=== PATIENT | male | born 1970 | race African-American/Black ===

== ENCOUNTER 2021-01-09 12:46 | Inpatient (IN) | payer OTHER ==
[2021-01-09] MEDS ORDERED: IBUPROFEN 400 MG TABLET (FP) PO PRN (15:07)
[2021-01-09] MEDS ORDERED: MENTHOL/PHENOL 1 EACH UD MM PRN (15:07)
[2021-01-09] MEDS ORDERED: NICOTINE 10 MG CARTRIDGE (INHALER) IH PRN (15:07)
[2021-01-09] MEDS ORDERED: MAGNESIUM HYDROX 2400MG/30ML ORAL SUSPENSION 30 ML CUP PO PRN (15:07)
[2021-01-09] MEDS ORDERED: METHOCARBAMOL 500 MG TABLET PO PRN (15:07)
[2021-01-09] MEDS ORDERED: ACETAMINOPHEN 325 MG TABLET (FP) PO PRN ×2 (15:07)
[2021-01-09] MEDS ORDERED: MAGNESIUM CITRATE 300 ML BOTTLE PO PRN (15:07)
[2021-01-09] MEDS ORDERED: MAG HYDROX/AL HYDROX/SIMETH 30 ML UNIT-DOSE CUP PO PRN (15:07)
[2021-01-09] MEDS ORDERED: BISMUTH SUBSALICYLATE 524 MG/30 ML PO PRN (15:07)
[2021-01-09] MEDS ORDERED: ONDANSETRON *ODT* 4 MG TABLET SL PRN (15:07)
[2021-01-09 17:02] VITALS: BMI 21.2
[2021-01-09] MEDS: hydrOXYzine PAMOATE 25 MG CAPSULE (FP) PO SCH ×2 (18:50→22:16)
[2021-01-09] MEDS ORDERED: TUBERCULIN PPD 5 TU/0.1ML SYRINGE (IN PATIENT USE ONLY) ID ONE (19:00)
[2021-01-09] MEDS ORDERED: THIAMINE HCL 100 MG TABLET (FP) PO SCH (22:00)
[2021-01-09] MEDS ORDERED: MELATONIN 5 MG TABLETS PO SCH (22:00)
[2021-01-09] MEDS: NAPROXEN 500 MG TABLET PO SCH (22:15)
[2021-01-09] MEDS: AMOX TR/POT CLAV 875MG/125MG TABLETS (FP) PO SCH (22:15)
[2021-01-10] MEDS: hydrOXYzine PAMOATE 25 MG CAPSULE (FP) PO SCH ×3 (06:04→10:29)
[2021-01-10] MEDS ORDERED: AMOX TR/POT CLAV 875MG/125MG TABLETS (FP) PO SCH (08:00)
[2021-01-10] MEDS: AMOX TR/POT CLAV 875MG/125MG TABLETS (FP) PO SCH (08:27)
[2021-01-10 09:12] VITALS: BP 128/75; PULSE 85; TEMP 98.6
[2021-01-10] MEDS ORDERED: PRENATAL VITAMINS W/ FOLIC ACID TABLET (FP) PO SCH (10:00)
[2021-01-10] MEDS: NAPROXEN 500 MG TABLET PO SCH (10:30)
[2021-01-10 10:34] LABS: ALBUMIN 2.7 g/dl (3.4-5.0); BLOOD UREA NITROGEN 15.1 mg/dL (7-18); CALCIUM 8.4 mg/dL (8.5-10.1)
[2021-01-10 10:38] LABS: CREATININE 0.8 mg/dL (0.55-1.3)
[2021-01-10 10:40] LABS: BILIRUBIN,TOTAL 0.3 mg/dL (0.2-1); TOT PROT 6.5 g/dl (6.4-8.2)
[2021-01-10 10:46] LABS: HEMATOCRIT 39.1 % (35.4-49); HEMOGLOBIN 13.6 GM/dL (11.7-16.9); MCH 32.6 pg (25.7-33.7); MCHC 34.7 g/dl (32.0-35.9); MEAN CELL VOLUME 94.1 fl (80-96); MEAN PLT VOLUME 9.1 fl (7.5-11.1); PLATELET COUNT 242 10^3/uL (134-434); RBC 4.16 M/mm3 (4.00-5.60); RDW 13.9 % (11.9-15.9); WHITE BLOOD COUNT 5.8 K/mm3 (4.0-10.0)
== END 2021-01-10 13:18 | disposition home or self-care (01) | DRG 774 ==
LOC: YASAS 12:46 → Y6N 17:55
PROVIDERS: ADMIT Allergy & Immunology; ATTEND Allergy & Immunology
PROC: HZ2ZZZZ Detoxification Services for Substance Abuse Treatment (ICD-10-PCS; principal; 2021-01-09)
DX: F10.230 Alcohol dependence with withdrawal, uncomplicated (principal); F14.20 Cocaine dependence, uncomplicated; F17.210 Nicotine dependence, cigarettes, uncomplicated; L03.114 Cellulitis of left upper limb; M19.90 Unspecified osteoarthritis, unspecified site; Z59.01 Sheltered homelessness
CPT/HCPCS: 36415; 80053; 85027; 86780; C9803; U0003; U0005

== ENCOUNTER 2021-01-10 13:27 | Inpatient (IN) | payer OTHER ==
[~2021-01-10 13:27] MED LIST: ACETAMINOPHEN 325 MG TABLET (FP) PO PRN; IBUPROFEN 400 MG TABLET (FP) PO PRN; LOPERAMIDE HCL 2 MG CAPSULE PO PRN; MAG HYDROX/AL HYDROX/SIMETH 30 ML UNIT-DOSE CUP PO PRN; MAGNESIUM CITRATE 300 ML BOTTLE PO PRN; MAGNESIUM HYDROX 2400MG/30ML ORAL SUSPENSION 30 ML CUP PO PRN; NICOTINE 10 MG CARTRIDGE (INHALER) IH PRN; P-EPHED 60MG/TRIPROLIDI 2.5MG TABLET PO PRN; guaiFENesin 200 MG/10 ML 10 ML UNIT-DOSE CUPS PO PRN; hydrOXYzine PAMOATE 25 MG CAPSULE (FP) PO PRN
[2021-01-10] MEDS ORDERED: PT OWN MED DRAWER 7, Y5N ONE (18:12)
[2021-01-10] MEDS: AMOX TR/POT CLAV 875MG/125MG TABLETS (FP) PO SCH (18:59)
[2021-01-10] MEDS: THIAMINE HCL 100 MG TABLET (FP) PO SCH (22:44)
[2021-01-10] MEDS: NAPROXEN 500 MG TABLET PO SCH (22:44)
[2021-01-10] MEDS: MELATONIN 5 MG TABLETS PO SCH (22:44)
[2021-01-10] MEDS: BACITRACIN 0.9 GM PACKET TP SCH (22:45)
[2021-01-11] MEDS ORDERED: PT OWN MED DRAWER 7, Y5N ONE (03:35)
[2021-01-11] MEDS: AMOX TR/POT CLAV 875MG/125MG TABLETS (FP) PO SCH ×2 (07:43→17:42)
[2021-01-11] MEDS: NICOTINE 7 MG/24 HOURS TOPICAL PATCH TD SCH (10:31)
[2021-01-11] MEDS: NAPROXEN 500 MG TABLET PO SCH ×2 (10:31→23:15)
[2021-01-11] MEDS: LIDOCAINE 5% TOPICAL PATCH TP SCH (10:31)
[2021-01-11] MEDS: PRENATAL VITAMINS W/ FOLIC ACID TABLET (FP) PO SCH (10:31)
[2021-01-11] MEDS: BACITRACIN 0.9 GM PACKET TP SCH ×2 (10:31→23:17)
[2021-01-11] MEDS: MELATONIN 5 MG TABLETS PO SCH (23:15)
[2021-01-11] MEDS: THIAMINE HCL 100 MG TABLET (FP) PO SCH (23:15)
[2021-01-11] MEDS: LIDOCAINE PATCH REMOVAL MC SCH (23:16)
[2021-01-12] MEDS ORDERED: PT OWN MED DRAWER 7, Y5N ONE ×4 (03:37→20:30)
[2021-01-12 06:49] VITALS: TEMP 97.1
[2021-01-12] MEDS: AMOX TR/POT CLAV 875MG/125MG TABLETS (FP) PO SCH ×2 (07:51→18:04)
[2021-01-12] MEDS: PRENATAL VITAMINS W/ FOLIC ACID TABLET (FP) PO SCH (09:53)
[2021-01-12] MEDS: NICOTINE 7 MG/24 HOURS TOPICAL PATCH TD SCH (09:53)
[2021-01-12] MEDS: LIDOCAINE 5% TOPICAL PATCH TP SCH (09:53)
[2021-01-12] MEDS: BACITRACIN 0.9 GM PACKET TP SCH ×2 (09:54→21:20)
[2021-01-12] MEDS: NAPROXEN 500 MG TABLET PO SCH ×2 (09:54→21:22)
[2021-01-12] MEDS: MELATONIN 5 MG TABLETS PO SCH (21:21)
[2021-01-12] MEDS: LIDOCAINE PATCH REMOVAL MC SCH (21:21)
[2021-01-12] MEDS: THIAMINE HCL 100 MG TABLET (FP) PO SCH (21:22)
[2021-01-13] MEDS: AMOX TR/POT CLAV 875MG/125MG TABLETS (FP) PO SCH ×3 (07:16→17:44)
[2021-01-13] MEDS ORDERED: PT OWN MED DRAWER 7, Y5N ONE ×3 (09:05→19:39)
[2021-01-13] MEDS: BACITRACIN 0.9 GM PACKET TP SCH ×2 (10:13→22:47)
[2021-01-13] MEDS: NAPROXEN 500 MG TABLET PO SCH ×2 (10:13→22:47)
[2021-01-13] MEDS: LIDOCAINE 5% TOPICAL PATCH TP SCH (10:13)
[2021-01-13] MEDS: PRENATAL VITAMINS W/ FOLIC ACID TABLET (FP) PO SCH (10:13)
[2021-01-13] MEDS: NICOTINE 7 MG/24 HOURS TOPICAL PATCH TD SCH (10:14)
[2021-01-13 12:11] VITALS: BP 119/75; PULSE 87
[2021-01-13] MEDS: LIDOCAINE PATCH REMOVAL MC SCH (22:47)
[2021-01-13] MEDS: THIAMINE HCL 100 MG TABLET (FP) PO SCH (22:47)
[2021-01-13] MEDS: MELATONIN 5 MG TABLETS PO SCH (22:47)
[2021-01-14] MEDS ORDERED: PT OWN MED DRAWER 7, Y5N ONE (06:48)
[2021-01-14] MEDS: AMOX TR/POT CLAV 875MG/125MG TABLETS (FP) PO SCH (07:30)
[2021-01-14] MEDS: NICOTINE 7 MG/24 HOURS TOPICAL PATCH TD SCH (11:01)
[2021-01-14] MEDS: BACITRACIN 0.9 GM PACKET TP SCH (11:01)
[2021-01-14] MEDS: NAPROXEN 500 MG TABLET PO SCH (11:01)
[2021-01-14] MEDS: LIDOCAINE 5% TOPICAL PATCH TP SCH (11:01)
[2021-01-14] MEDS: PRENATAL VITAMINS W/ FOLIC ACID TABLET (FP) PO SCH (11:02)
== END 2021-01-14 10:33 | disposition home or self-care (01) | DRG 772 ==
LOC: YASAS 13:27 → Y3E 13:29
PROVIDERS: ADMIT Allergy & Immunology; ATTEND Allergy & Immunology
PROC: HZ42ZZZ Group Counseling for Substance Abuse Treatment, Cognitive-Behavioral (ICD-10-PCS; principal; 2021-01-10)
DX: F10.20 Alcohol dependence, uncomplicated (principal); F14.20 Cocaine dependence, uncomplicated; F17.210 Nicotine dependence, cigarettes, uncomplicated; Z59.01 Sheltered homelessness

== ENCOUNTER 2021-02-05 15:20 | Inpatient (IN) | payer OTHER ==
[2021-02-05] MEDS ORDERED: NICOTINE 10 MG CARTRIDGE (INHALER) IH PRN (16:30)
[2021-02-05] MEDS ORDERED: MENTHOL/PHENOL 1 EACH UD MM PRN (16:30)
[2021-02-05] MEDS ORDERED: BISMUTH SUBSALICYLATE 524 MG/30 ML PO PRN (16:30)
[2021-02-05] MEDS ORDERED: MAG HYDROX/AL HYDROX/SIMETH 30 ML UNIT-DOSE CUP PO PRN (16:30)
[2021-02-05] MEDS ORDERED: IBUPROFEN 400 MG TABLET (FP) PO PRN (16:30)
[2021-02-05] MEDS ORDERED: ONDANSETRON *ODT* 4 MG TABLET SL PRN (16:30)
[2021-02-05] MEDS ORDERED: MAGNESIUM CITRATE 300 ML BOTTLE PO PRN (16:30)
[2021-02-05] MEDS ORDERED: METHOCARBAMOL 500 MG TABLET PO PRN (16:30)
[2021-02-05] MEDS ORDERED: ACETAMINOPHEN 325 MG TABLET (FP) PO PRN ×2 (16:30)
[2021-02-05] MEDS ORDERED: MAGNESIUM HYDROX 2400MG/30ML ORAL SUSPENSION 30 ML CUP PO PRN (16:30)
[2021-02-05 19:50] VITALS: BMI 21.7
[2021-02-05] MEDS: PRENATAL VITAMINS W/ FOLIC ACID TABLET (FP) PO SCH (20:35)
[2021-02-05] MEDS: hydrOXYzine PAMOATE 25 MG CAPSULE (FP) PO SCH ×2 (20:35→22:38)
[2021-02-05] MEDS ORDERED: MELATONIN 5 MG TABLETS PO SCH (22:00)
[2021-02-05] MEDS ORDERED: THIAMINE HCL 100 MG TABLET (FP) PO SCH (22:00)
[2021-02-05] MEDS: NAPROXEN 500 MG TABLET PO PRN (22:37)
[2021-02-05] MEDS: TOLNAFTATE 1% CREAM 15 GM TUBE TP SCH (22:38)
[2021-02-06] MEDS ORDERED: NYSTATIN 100,000 UNIT/GM TOPICAL CREAM 15 GM TUBE TP SCH
[2021-02-06] MEDS: hydrOXYzine PAMOATE 25 MG CAPSULE (FP) PO SCH ×2 (05:22→10:26)
[2021-02-06] MEDS ORDERED: BACITRACIN 0.9 GM PACKET TP SCH (10:00)
[2021-02-06] MEDS: PRENATAL VITAMINS W/ FOLIC ACID TABLET (FP) PO SCH (10:26)
[2021-02-06] MEDS: TOLNAFTATE 1% CREAM 15 GM TUBE TP SCH (10:26)
[2021-02-06] MEDS: NAPROXEN 500 MG TABLET PO PRN (10:28)
[2021-02-06 12:14] LABS: HEMATOCRIT 41.2 % (35.4-49); HEMOGLOBIN 14.1 GM/dL (11.7-16.9); MCH 32.3 pg (25.7-33.7); MCHC 34.1 g/dl (32.0-35.9); MEAN CELL VOLUME 94.7 fl (80-96); MEAN PLT VOLUME 9.4 fl (7.5-11.1); PLATELET COUNT 211 10^3/uL (134-434); RBC 4.35 M/mm3 (4.00-5.60); RDW 13.7 % (11.9-15.9); WHITE BLOOD COUNT 5.6 K/mm3 (4.0-10.0)
[2021-02-06 12:33] LABS: CALCIUM 8.4 mg/dL (8.5-10.1)
[2021-02-06 12:34] LABS: ALBUMIN 2.9 g/dl (3.4-5.0)
[2021-02-06 12:36] LABS: BLOOD UREA NITROGEN 14.3 mg/dL (7-18); CREATININE 0.8 mg/dL (0.55-1.3)
[2021-02-06 12:37] LABS: BILIRUBIN,TOTAL 0.6 mg/dL (0.2-1); TOT PROT 6.5 g/dl (6.4-8.2)
[2021-02-06 13:04] VITALS: BP 107/51; PULSE 89; TEMP 97.1
== END 2021-02-06 12:36 | disposition home or self-care (01) | DRG 774 ==
LOC: YASAS 15:20 → UNDOADMIN 18:16 → Y3N 18:16
PROVIDERS: ADMIT Allergy & Immunology; ATTEND Allergy & Immunology
PROC: HZ2ZZZZ Detoxification Services for Substance Abuse Treatment (ICD-10-PCS; principal; 2021-02-05)
DX: F10.230 Alcohol dependence with withdrawal, uncomplicated (principal); F14.10 Cocaine abuse, uncomplicated; F17.213 Nicotine dependence, cigarettes, with withdrawal; M19.90 Unspecified osteoarthritis, unspecified site; R26.2 Difficulty in walking, not elsewhere classified; Z99.89 Dependence on other enabling machines and devices
CPT/HCPCS: 36415; 80053; 85027; 86780; C9803; U0003; U0005

== ENCOUNTER 2021-07-10 13:00 | Inpatient (IN) | payer OTHER ==
[2021-07-10] MEDS ORDERED: P-EPHED 60MG/TRIPROLIDI 2.5MG TABLET PO PRN (15:02)
[2021-07-10] MEDS ORDERED: ACETAMINOPHEN 325 MG TABLET (FP) PO PRN (15:02)
[2021-07-10] MEDS ORDERED: NICOTINE 10 MG CARTRIDGE (INHALER) IH PRN (15:02)
[2021-07-10] MEDS ORDERED: IBUPROFEN 400 MG TABLET (FP) PO PRN (15:02)
[2021-07-10] MEDS ORDERED: MAGNESIUM HYDROX 2400MG/30ML ORAL SUSPENSION 30 ML CUP PO PRN (15:02)
[2021-07-10] MEDS ORDERED: MAGNESIUM CITRATE 300 ML BOTTLE PO PRN (15:02)
[2021-07-10] MEDS ORDERED: guaiFENesin 200 MG/10 ML 10 ML UNIT-DOSE CUPS PO PRN (15:02)
[2021-07-10] MEDS ORDERED: MAG HYDROX/AL HYDROX/SIMETH 30 ML UNIT-DOSE CUP PO PRN (15:02)
[2021-07-10] MEDS ORDERED: LOPERAMIDE HCL 2 MG CAPSULE PO PRN (15:02)
[2021-07-10 18:23] VITALS: BMI 21.1
[2021-07-10] MEDS: MELATONIN 5 MG TABLETS PO SCH (23:04)
[2021-07-10] MEDS: THIAMINE HCL 100 MG TABLET (FP) PO SCH (23:05)
[2021-07-10] MEDS: hydrOXYzine PAMOATE 25 MG CAPSULE (FP) PO SCH ×2 (23:05→23:10)
[2021-07-10] MEDS ORDERED: TUBERCULIN PPD 5 TU/0.1ML VIAL ID ONE (23:06)
[2021-07-11] MEDS: hydrOXYzine PAMOATE 25 MG CAPSULE (FP) PO SCH ×5 (07:08→22:17)
[2021-07-11 11:02] LABS: HEMATOCRIT 45.4 % (35.4-49); HEMOGLOBIN 15.2 GM/dL (11.7-16.9); MCH 31.2 pg (25.7-33.7); MCHC 33.6 g/dl (32.0-35.9); MEAN CELL VOLUME 93.1 fl (80-96); MEAN PLT VOLUME 9.8 fl (7.5-11.1); PLATELET COUNT 201 10^3/uL (134-434); RBC 4.88 M/mm3 (4.00-5.60); RDW 13.6 % (11.9-15.9); WHITE BLOOD COUNT 9.7 K/mm3 (4.0-10.0)
[2021-07-11 11:37] LABS: SYPHILIS W/ RPR CONF NON-REACTIVE (NONREACTIVE)
[2021-07-11] MEDS: NICOTINE 7 MG/24 HOURS TOPICAL PATCH TD SCH (11:43)
[2021-07-11] MEDS: PRENATAL VITAMINS W/ FOLIC ACID TABLET (FP) PO SCH (11:44)
[2021-07-11 12:36] LABS: BLOOD UREA NITROGEN 11.9 mg/dL (7-18)
[2021-07-11 12:38] LABS: ALBUMIN 3.3 g/dl (3.4-5.0); CALCIUM 9.1 mg/dL (8.5-10.1)
[2021-07-11 12:42] LABS: BILIRUBIN,TOTAL 0.8 mg/dL (0.2-1); CREATININE 0.9 mg/dL (0.55-1.3)
[2021-07-11 12:43] LABS: TOT PROT 7.2 g/dl (6.4-8.2)
[2021-07-11] MEDS: NAPROXEN 500 MG TABLET PO PRN (17:32)
[2021-07-11] MEDS: MELATONIN 5 MG TABLETS PO SCH (22:17)
[2021-07-11] MEDS: THIAMINE HCL 100 MG TABLET (FP) PO SCH (22:17)
[2021-07-12] MEDS: hydrOXYzine PAMOATE 25 MG CAPSULE (FP) PO SCH ×5 (07:55→21:27)
[2021-07-12] MEDS: PRENATAL VITAMINS W/ FOLIC ACID TABLET (FP) PO SCH (10:02)
[2021-07-12] MEDS: NICOTINE 7 MG/24 HOURS TOPICAL PATCH TD SCH (10:03)
[2021-07-12] MEDS: NAPROXEN 500 MG TABLET PO PRN (10:03)
[2021-07-12] MEDS: MELATONIN 5 MG TABLETS PO SCH (21:26)
[2021-07-12] MEDS: THIAMINE HCL 100 MG TABLET (FP) PO SCH (21:26)
[2021-07-12] MEDS: traZODone HCL 50 MG TABLET (FP) PO SCH (21:26)
[2021-07-13] MEDS: hydrOXYzine PAMOATE 25 MG CAPSULE (FP) PO SCH ×5 (07:22→21:56)
[2021-07-13] MEDS: PRENATAL VITAMINS W/ FOLIC ACID TABLET (FP) PO SCH (10:03)
[2021-07-13] MEDS: NICOTINE 7 MG/24 HOURS TOPICAL PATCH TD SCH (10:03)
[2021-07-13] MEDS: traZODone HCL 50 MG TABLET (FP) PO SCH (21:39)
[2021-07-13] MEDS: MELATONIN 5 MG TABLETS PO SCH (21:40)
[2021-07-13] MEDS: THIAMINE HCL 100 MG TABLET (FP) PO SCH (21:56)
[2021-07-14 08:17] VITALS: BP 121/74; PULSE 70; TEMP 98
[2021-07-14] MEDS: hydrOXYzine PAMOATE 25 MG CAPSULE (FP) PO SCH ×2 (08:28→10:54)
[2021-07-14] MEDS: PRENATAL VITAMINS W/ FOLIC ACID TABLET (FP) PO SCH (10:53)
[2021-07-14] MEDS: NICOTINE 7 MG/24 HOURS TOPICAL PATCH TD SCH (11:30)
== END 2021-07-14 13:29 | disposition left against medical advice (07) | DRG 770 ==
LOC: YASAS 13:00 → Y3W 18:32
PROVIDERS: ADMIT Allergy & Immunology; ATTEND Allergy & Immunology
PROC: HZ42ZZZ Group Counseling for Substance Abuse Treatment, Cognitive-Behavioral (ICD-10-PCS; principal; 2021-07-10)
DX: F14.20 Cocaine dependence, uncomplicated (principal); F12.20 Cannabis dependence, uncomplicated; F19.282 Other psychoactive substance dependence with psychoactive substance-induced sleep disorder; F19.24 Other psychoactive substance dependence with psychoactive substance-induced mood disorder; Z87.891 Personal history of nicotine dependence; Z59.01 Sheltered homelessness
CPT/HCPCS: 36415; 80053; 85027; 86780; 86803; C9803-CS; U0003; U0005

== ENCOUNTER 2021-08-03 08:54 | Inpatient (IN) | payer OTHER ==
[2021-08-02 16:30] VITALS: BMI 21.2
[2021-08-03] MEDS: ACETAMINOPHEN 325 MG TABLET (FP) PO PRN (03:09)
[2021-08-03 08:47] LABS: HEMATOCRIT 36.6 % (35.4-49); HEMOGLOBIN 12.2 GM/dL (11.7-16.9); MCH 31.3 pg (25.7-33.7); MCHC 33.5 g/dl (32.0-35.9); MEAN CELL VOLUME 93.6 fl (80-96); MEAN PLT VOLUME 8.6 fl (7.5-11.1); PLATELET COUNT 426 10^3/uL (134-434); RBC 3.91 M/mm3 (4.00-5.60); RDW 14.1 % (11.9-15.9); WHITE BLOOD COUNT 6.4 K/mm3 (4.0-10.0)
[~2021-08-03 08:54] MED LIST changes: +BENZOCAINE/MENTHOL (CHLORASEPTIC ) LOZENGE MM PRN; +BISMUTH SUBSALICYLATE 524 MG/30 ML PO PRN; +DICYCLOMINE HCL 10 MG CAPSULE PO PRN; -NICOTINE 10 MG CARTRIDGE (INHALER) IH PRN; +ONDANSETRON *ODT* 4 MG TABLET SL PRN; -P-EPHED 60MG/TRIPROLIDI 2.5MG TABLET PO PRN; -guaiFENesin 200 MG/10 ML 10 ML UNIT-DOSE CUPS PO PRN; -hydrOXYzine PAMOATE 25 MG CAPSULE (FP) PO PRN
[2021-08-03 09:07] LABS: ALBUMIN 2.3 g/dl (3.4-5.0); BLOOD UREA NITROGEN 11.6 mg/dL (7-18); CALCIUM 8.7 mg/dL (8.5-10.1)
[2021-08-03 09:09] LABS: CREATININE 0.7 mg/dL (0.55-1.3)
[2021-08-03 09:11] LABS: BILIRUBIN,TOTAL 0.3 mg/dL (0.2-1); TOT PROT 6.7 g/dl (6.4-8.2)
[2021-08-03] MEDS: PRENATAL VITAMINS W/ FOLIC ACID TABLET (FP) PO SCH (12:09)
[2021-08-03] MEDS: METHOCARBAMOL 500 MG TABLET PO PRN (12:09)
[2021-08-03] MEDS: NAPROXEN 500 MG TABLET PO PRN (18:20)
[2021-08-03] MEDS: THIAMINE HCL 100 MG TABLET (FP) PO SCH (22:20)
[2021-08-03] MEDS: MELATONIN 5 MG TABLETS PO SCH (22:20)
[2021-08-04] MEDS: MELATONIN 5 MG TABLETS PO SCH ×2 (00:53→22:24)
[2021-08-04] MEDS: THIAMINE HCL 100 MG TABLET (FP) PO SCH ×2 (00:54→22:24)
[2021-08-04] MEDS: PRENATAL VITAMINS W/ FOLIC ACID TABLET (FP) PO SCH (10:52)
[2021-08-04] MEDS: NAPROXEN 500 MG TABLET PO PRN ×2 (10:54→22:25)
[2021-08-05] MEDS: METHOCARBAMOL 500 MG TABLET PO PRN ×2 (02:30→20:59)
[2021-08-05] MEDS: NAPROXEN 500 MG TABLET PO PRN ×2 (02:30→21:00)
[2021-08-05] MEDS ORDERED: LORazepam 1 MG TABLET PO PRN (10:00)
[2021-08-05] MEDS: PRENATAL VITAMINS W/ FOLIC ACID TABLET (FP) PO SCH (10:24)
[2021-08-05] MEDS: ACETAMINOPHEN 325 MG TABLET (FP) PO PRN (10:25)
[2021-08-05] MEDS: LORazepam 2 MG TABLET PO SCH ×3 (10:27→22:20)
[2021-08-05] MEDS ORDERED: BACITRACIN 0.9 GM PACKET TP ONE (14:56)
[2021-08-05] MEDS: MELATONIN 5 MG TABLETS PO SCH (22:20)
[2021-08-05] MEDS: BACITRACIN 0.9 GM PACKET TP SCH (22:20)
[2021-08-05] MEDS: THIAMINE HCL 100 MG TABLET (FP) PO SCH (22:20)
[2021-08-05] MEDS: TETRAHYDROZOLINE HCL EYE DROPS OU PRN (22:21)
[2021-08-06] MEDS: TETRAHYDROZOLINE HCL EYE DROPS OU PRN ×2 (03:56→08:15)
[2021-08-06] MEDS: LORazepam 2 MG TABLET PO SCH ×4 (06:27→22:09)
[2021-08-06] MEDS: NAPROXEN 500 MG TABLET PO PRN ×2 (10:35→22:12)
[2021-08-06] MEDS: PRENATAL VITAMINS W/ FOLIC ACID TABLET (FP) PO SCH (10:36)
[2021-08-06] MEDS: CIPROFLOXACIN HCL 0.3% OPHTH 2.5ML BOTTLE OD SCH ×4 (10:39→22:44)
[2021-08-06] MEDS: BACITRACIN 0.9 GM PACKET TP SCH ×2 (10:39→22:08)
[2021-08-06] MEDS: MELATONIN 5 MG TABLETS PO SCH (22:08)
[2021-08-06] MEDS: THIAMINE HCL 100 MG TABLET (FP) PO SCH (22:08)
[2021-08-06] MEDS: METHOCARBAMOL 500 MG TABLET PO PRN (22:15)
[2021-08-07] MEDS: CIPROFLOXACIN HCL 0.3% OPHTH 2.5ML BOTTLE OD SCH ×5 (08:11→22:49)
[2021-08-07] MEDS: LORazepam 1 MG TABLET PO SCH ×4 (08:11→22:50)
[2021-08-07] MEDS: BACITRACIN 0.9 GM PACKET TP SCH ×2 (11:02→22:50)
[2021-08-07] MEDS: NAPROXEN 500 MG TABLET PO PRN ×2 (11:03→22:49)
[2021-08-07] MEDS: METHOCARBAMOL 500 MG TABLET PO PRN ×2 (11:03→22:49)
[2021-08-07] MEDS: PRENATAL VITAMINS W/ FOLIC ACID TABLET (FP) PO SCH (11:09)
[2021-08-07] MEDS: THIAMINE HCL 100 MG TABLET (FP) PO SCH (22:49)
[2021-08-07] MEDS: MELATONIN 5 MG TABLETS PO SCH (22:49)
[2021-08-08] MEDS ORDERED: LORazepam 0.5 MG TABLET PO PRN
[2021-08-08] MEDS: ACETAMINOPHEN 325 MG TABLET (FP) PO PRN (00:40)
[2021-08-08] MEDS ORDERED: MELATONIN 5 MG TABLETS PO ONE (03:37)
[2021-08-08] MEDS: LORazepam 0.5 MG TABLET PO SCH ×2 (07:40→10:39)
[2021-08-08] MEDS: CIPROFLOXACIN HCL 0.3% OPHTH 2.5ML BOTTLE OD SCH ×2 (07:41→10:39)
[2021-08-08] MEDS: NAPROXEN 500 MG TABLET PO PRN (08:46)
[2021-08-08 09:15] VITALS: BP 111/72; PULSE 93; TEMP 97.8
[2021-08-08] MEDS: PRENATAL VITAMINS W/ FOLIC ACID TABLET (FP) PO SCH (10:39)
[2021-08-08] MEDS: BACITRACIN 0.9 GM PACKET TP SCH (10:39)
[2021-08-09] MEDS ORDERED: LORazepam 0.5 MG TABLET PO ONE (05:00)
== END 2021-08-08 11:50 | disposition home or self-care (01) | DRG 774 ==
LOC: YASAS 08:54 → Y3N 11:01
PROVIDERS: ADMIT Allergy & Immunology; ATTEND Surgery
PROC: HZ2ZZZZ Detoxification Services for Substance Abuse Treatment (ICD-10-PCS; principal; 2021-08-03)
DX: F10.230 Alcohol dependence with withdrawal, uncomplicated (principal); F14.20 Cocaine dependence, uncomplicated; F12.20 Cannabis dependence, uncomplicated; F17.213 Nicotine dependence, cigarettes, with withdrawal; H10.31 Unspecified acute conjunctivitis, right eye; K21.9 Gastro-esophageal reflux disease without esophagitis; M19.90 Unspecified osteoarthritis, unspecified site; Z99.89 Dependence on other enabling machines and devices; Z56.0 Unemployment, unspecified; Z59.00 Homelessness unspecified
CPT/HCPCS: 36415; 80053; 85027; 86780; 87811; C9803-CS; U0003; U0005